=== PATIENT | female | born 1945 | race Caucasian/White ===

== ENCOUNTER → 2018-02-12 08:15 | Outpatient (CLI) | payer MEDICARE, OTHER, SELFPAY ==
--- NOTE | 2018-02-12 | DI.MRI.S_ITS ---
PROCEDURE: MR CERVICAL SPINE WO CON INDICATIONS: Polyneuropathy, unspecified TECHNIQUE: Noncontrast sagittal T1 spin echo and T2 fast spin echo, sagittal STIR, foraminal oblique sagittal T2 fast spin echo, and axial gradient echo or T2 fast spin echo through the cervical spine. COMPARISON: [facility] [place], , SPINE CERVICAL 2 OR 3VW, 07/06/2014, 16:34. [facility], , C-SPINE WITHOUT CONTRAST, 11/15/2016, 8:40. FINDINGS: Image quality: Excellent. Alignment and Curvature: There is normal bony alignment. Bone Marrow: Reactive endplate changes noted adjacent to the C4-C5, C5-C6 and C6 on C7 discs. Spinal Cord: Visualized spinal cord has normal size and signal. No cerebellar tonsillar herniation. Paraspinous Soft Tissues: No paravertebral masses. Prevertebral soft tissues are normal in thickness. C2-C3: Loss of disc signal. Mild bilateral facet hypertrophy. No central stenosis. No neural foraminal narrowing. No neural impingement. C3-C4: Loss of disc signal. Moderate right and mild left facet hypertrophy. No central stenosis. Mild bilateral neural foraminal narrowing. No neural impingement. C4-C5: Loss of disc signal and height. Moderate, diffuse disc bulge. Moderate right and mild left facet hypertrophy. Moderate bilateral uncovertebral joint hypertrophy. Severe narrowing of the central canal with flattening deformity cervical spinal cord. Severe bilateral neural foraminal narrowing with flattening deformity of the exiting C5 nerve roots. C5-C6: Loss of disc signal and height. Moderate, diffuse disc bulge. Moderate right and mild left facet hypertrophy. Moderate bilateral uncovertebral joint hypertrophy. Severe narrowing of the central canal with marked flattening deformity of the cervical spinal cord. Severe bilateral neural foraminal narrowing with flattening deformity of the exiting C6 nerve roots. C6-C7: Loss of disc signal and height. Moderate, diffuse disc bulge. Mild bilateral facet hypertrophy. Moderate bilateral uncovertebral joint hypertrophy. Severe narrowing of the central canal with flattening deformity cervical spinal cord. Severe bilateral neural foraminal narrowing with flattening deformity the exiting C7 nerve roots. C7-T1: Loss of disc signal. No central stenosis. No neural foraminal narrowing. No neural impingement. IMPRESSION: 1. Multilevel degenerative disc disease. 2. Multilevel facet arthropathy. 3. Severe C4-C5, C5-C6 and C6-C7 central canal narrowing. 4. Severe bilateral C4-C5, C5-C6 and C6-C7 neural foraminal narrowing. Mild bilateral C3-C4 neural foraminal narrowing. Dictated by: Chloe Sparks MD, PhD on 02/12/2018 at 15:20 Approved by: Chloe Sparks MD, PhD on 02/12/2018 at 16:01
--- NOTE | 2018-02-12 | DI.MRI.S_ITS ---
PROCEDURE: MR LUMBAR SPINE WO CON INDICATIONS: Polyneuropathy, unspecified TECHNIQUE: Noncontrast sagittal T1 spin echo and T2 fast echo, sagittal STIR, axial T1 and T2 fast spin echo through the lumbar spine. In cases with scoliosis, additional coronal T2 fast spin echo may be performed. COMPARISON: [facility], , L-SPINE WITHOUT CONTRAST, 07/12/2014, 14:51. [facility] [place], CR, SPINE LUMB 2 OR 3VW, 07/06/2014, 16:40. FINDINGS: Image quality: Excellent. Alignment and Curvature: 5 lumbar type vertebral bodies are present by plain film. There is mild, grade 1 retrolisthesis of L5 on S1, as before. Bone Marrow: Marrow is of normal overall signal. No acute vertebral body compression fractures. Mild reactive signal within the endplates adjacent to the of the L4-L5 and L5-S1 intervertebral discs. Spinal Cord: Conus medullaris terminates at the lower L2 level. Visualized cord demonstrates normal signal and size. Paraspinous Soft Tissues: No paravertebral masses. There is a complex septated high T2 intensity focus within the vicinity of the pancreatic head measuring roughly 40 mm diameter. Additionally, there is a 6 mm diameter low T2 intensity focus within the distal common bile duct, suggestive of choledocholithiasis. This area was not seen on the prior lumbar spine MRI examination. L1-L2: Mild facet hypertrophy and ligament flavum hypertrophy. No significant canal, nor foraminal stenosis. No change. L2-L3: Mild facet and ligamentum flavum hypertrophy. No significant canal, nor foraminal stenosis. No change. L3-L4: Mild disc desiccation and minimal diffuse disc bulge. Mild facet and ligamentum flavum hypertrophy. Mild canal stenosis. No foraminal stenosis. No change. L4-L5: Minimal disc desiccation. Moderate facet and ligamentum flavum hypertrophy. Mild canal stenosis. No foraminal stenosis. No change. L5-S1: Moderate disc height loss and desiccation. Mild diffuse disc bulge/osteophyte, with superimposed broad-based right far lateral protrusion. Left girdle and right facet hypertrophy. There is increased, moderate canal stenosis. There is increased, severe subarticular left foraminal stenosis. No change in mild right foraminal stenosis. There is increased flattening deformity of the left L5 nerve root within the neural foramen. IMPRESSION: 1. Findings suggestive of a choledocholith. Additionally, there is an indeterminate high T2 intensity lesion within or near the pancreas. Further assessment with pancreatic protocol CT with and without intravenous contrast is recommended for further assessment. 2.Multilevel degenerative disc and facet disease, as well as ligamentum flavum hypertrophy and epidural lipomatosis. 3. Multilevel canal stenoses, worst at L5-S1, where there is increased, moderate canal stenosis. 4. Multilevel foraminal stenoses, worst at L5-S1 on the left, where there is increased, severe subarticular left-sided foraminal stenosis, with associated flattening deformity of the left L5 nerve root within the neural foramen. Recommend correlation with clinical symptoms to ascertain relevance of this finding. 5. Findings discussed with Dr. Addison on 02.12.18 at 1015 hrs. Dictated by: Saniya Zapata M.D. on 02/12/2018 at 10:05 Approved by: Saniya Zapata M.D. on 02/12/2018 at 10:20
--- NOTE | 2018-02-12 | DI.MRI.S_ITS ---
PROCEDURE: MR THORACIC SPINE WO CON INDICATIONS: Polyneuropathy, unspecified TECHNIQUE: Noncontrast sagittal T1 spine echo and T2 fast spin echo, sagittal STIR, axial T1 and T2 fast spin echo through the thoracic spine. COMPARISON: None. FINDINGS: Image quality: Excellent. Alignment and Curvature: There is normal bony alignment. Bone Marrow: Marrow is of normal overall signal. No acute vertebral body compression fractures. Spinal Cord: Visualized spinal cord is normal in size and signal. Paraspinous Soft Tissues: No paravertebral masses. Miscellaneous: Mild multilevel degenerative disc changes are noted. No central stenosis. No neural foraminal narrowing. No neural impingement. IMPRESSION: 1. Mild multilevel degenerative disc disease. 2. No central stenosis. 3. No neural foraminal narrowing. 4. No neural impingement. 5. No abnormal spinal cord signal. Dictated by: Chloe Sparks MD, PhD on 02/12/2018 at 16:19 Approved by: Chloe Sparks MD, PhD on 02/12/2018 at 16:24
== END ==
PROVIDERS: Family Provider Physician Assistant Medical; PCP Physician Assistant Medical; Visit Provider Student in an Organized Health Care Education/Training Program
DX: G62.9 Polyneuropathy, unspecified (principal); K86.9 Disease of pancreas, unspecified; M51.37 Other intervertebral disc degeneration, lumbosacral region; M51.34 Other intervertebral disc degeneration, thoracic region; M48.061 Spinal stenosis, lumbar region without neurogenic claudication; M48.07 Spinal stenosis, lumbosacral region; M50.321 Other cervical disc degeneration at C4-C5 level; M47.812 Spondylosis without myelopathy or radiculopathy, cervical region; M48.02 Spinal stenosis, cervical region
CPT/HCPCS: 72141; 72146; 72148

== ENCOUNTER → 2018-02-13 11:40 | Outpatient (CLI) | payer MEDICARE, OTHER, SELFPAY ==
[2018-02-13 12:18] LABS: Alanine Aminotransferase 28 IU/L (9-52); Albumin 4.4 g/dL (3.5-5.0); Albumin Globulin Ratio 1.3 (1.0-2.8); Alkaline Phosphatase 78 U/L (38-126); Aspartate Aminotransferase 28 IU/L (14-36); BUN Creatinine Ratio 13.8 (6-22); Bilirubin Total 0.3 mg/dL (0.2-1.3); Blood Urea Nitrogen 11 mg/dL (7-17); Calcium 9.7 mg/dL (8.4-10.2); Carbon Dioxide 30 mmol/L (22-32); Chloride 101 mmol/L (98-107); Estimated Glomerular Filt Rate > 60.0 mL/min (>60); Globulin 3.3 g/dL (1.7-4.1); Glucose 91 mg/dL (80-110); HEMOLYSIS < 15 (0-50); Potassium 4.2 mmol/L (3.4-5.1); Sodium 142 mmol/L (137-145); Total Protein 7.7 g/dL (6.3-8.2)
--- NOTE | 2018-02-13 12:18 | DI.CT.S_ITS ---
PROCEDURE: CT ABDOMEN WO/W CON INDICATIONS: Suspected pancreatic lesion on prior lumbar spine MRI. TECHNIQUE: Noncontrast 3 mm thick sections acquired through the pancreas. After the administration of intravenous contrast, 3 mm thick pancreatic-phase images acquired from the diaphragm to the iliac crests. 3 mm thick coronal and sagittal reformats were performed. For radiation dose reduction, the following was used: automated exposure control, adjustment of mA and/or kV according to patient size. COMPARISON: [facility], MR, MR LUMBAR SPINE WO CON, 02/12/2018, 8:48. FINDINGS: Image quality: Excellent. Lung bases: There is mild dependent atelectasis. Heart size is normal. There is a small hiatal hernia. Postsurgical changes are demonstrated in the region of the diaphragmatic hiatus. Pancreas: There are a few small ovoid cystic lesions demonstrated in the pancreas. Include a small lesion medially in the uncinate process measuring up to 1.5 x 0.7 cm adjacent to the pancreatic duct with suggestion of focal communication. In the head of the pancreas, there is a small cystic lesion posteriorly measuring up to 1.0 x 0.7 cm also noted adjacent to the pancreatic duct. Within the junction of the body and tail of the pancreas, there are 2 small cystic lesions measuring up to 0.5 and 0.4 cm also demonstrated adjacent to the pancreatic duct. The lesions most likely represent small side branch IPMN's. No pancreatic duct dilatation. No definite solid pancreatic mass is identified. There is a large medial duodenal diverticulum also demonstrated along the body and uncinate process of the pancreas. Other solid organs: There are a few hepatic cysts as well as additional small low-density ovoid foci in the liver which are too small to characterize but likely represent cysts. The gallbladder is surgically absent. There is mild biliary ductal dilatation, with the common bile duct measuring up to approximately 0.9 cm. No definite obstructing common duct stone visualized. The findings may be secondary to prior cholecystectomy. Spleen is normal in size and enhancement. No adrenal nodules. Kidneys demonstrate no hydronephrosis. No Peritoneum and bowel: Visualized bowel loops demonstrate normal wall thickness and caliber. There is chronic diverticulosis noted. No free fluid or air. Nodes and vessels: No retroperitoneal or mesenteric adenopathy by size criteria. Aorta and inferior vena cava are normal in size. Bones: No suspicious bony lesions. No vertebral body compression fractures. Miscellaneous: No ventral hernias. IMPRESSION: 1. Multiple small cystic lesions demonstrated in the pancreas as described likely representing small side branch IPMN's. No discrete solid mass lesions or pancreatic duct dilatation identified. Followup may be performed in 12 months to demonstrate stability if clinically indicated. 2. Large duodenal diverticulum adjacent to the hepatic head likely corresponding to findings on prior lumbar spine MRI. 3. Multiple hepatic cysts as well as smaller low density foci likely representing cysts. Dictated by: Luis Miguel Montes M.D. on 02/13/2018 at 15:29 Approved by: Luis Miguel oMntes M.D. on 02/13/2018 at 15:46
== END ==
PROVIDERS: Family Provider Physician Assistant Medical; PCP Physician Assistant Medical; Visit Provider Student in an Organized Health Care Education/Training Program
DX: K86.2 Cyst of pancreas (principal); K76.89 Other specified diseases of liver; K57.10 Diverticulosis of small intestine without perforation or abscess without bleeding; R93.89 Abnormal findings on diagnostic imaging of other specified body structures
CPT/HCPCS: 36415; 74170; 80053; Q9967

== ENCOUNTER → 2018-03-09 14:05 | Outpatient (CLI) | payer MEDICARE, OTHER, SELFPAY ==
--- NOTE | 2018-03-09 | DI.MG.S_ITS ---
BILATERAL DIGITAL SCREENING MAMMOGRAM 3D/2D WITH CAD: 03/09/2018 CLINICAL: Routine screening. Family history of breast cancer. Comparison is made to exams dated: 02/22/2016 mammogram, 01/03/2015 mammogram, and 01/27/2013 mammogram - [facility]. There are scattered fibroglandular elements in both breasts. Current study was also evaluated with a Computer Aided Detection (CAD) system. No significant masses, calcifications, or other findings are seen in either breast. There has been no significant interval change. IMPRESSION: NEGATIVE There is no mammographic evidence of malignancy. A 1 year screening mammogram is recommended. This exam was interpreted at Station ID: [id number]. NOTE: For mammograms, a report in lay terms will be sent to the patient. Approximately 15% of breast malignancies will not be visualized mammographically. In the management of a palpable breast mass, a negative mammogram must not discourage biopsy of a clinically suspicious lesion. Electronically Signed By: Edward murillo/ovidio:03/09/2018 16:36:50 letter sent: Normal Exam ACR BI-RADS Category 1: Negative 3341F
== END ==
PROVIDERS: Family Provider Physician Assistant Medical; PCP Physician Assistant Medical; Visit Provider Physician Assistant Medical
DX: Z12.31 Encounter for screening mammogram for malignant neoplasm of breast (principal); Z80.3 Family history of malignant neoplasm of breast
CPT/HCPCS: 77063; 77067

== ENCOUNTER 2018-04-03 11:35 | Emergency (ER) | payer MEDICARE, OTHER, SELFPAY ==
[2018-04-03 11:40] VITALS: BP 129/64; PULSE 81; RESP 18; TEMP 36.9; O2SAT 97
--- NOTE | 2018-04-03 12:04 | ED.BACK ---
HPI - Back Pain/Injury <Ludmila Sequeira PA-C - Last Filed: 04/03/18 21:53> General Chief Complaint: Back Pain/Injury Stated Complaint: sciatica, lower back pain Time Seen by Provider: 04/03/18 12:03 Source: patient Mode of arrival: ambulatory Limitations: no limitations History of Present Illness HPI Narrative: This 73-year-old female comes to ED due to worsening of her chronic right-sided sciatica. She had an MRI here last month, and states that she has been referred for some type of surgical intervention but does not know what procedure is planned. She states that her pain is always bad and has been gradually worsening to the point that she states that she tried THC last month, with no relief. She states that her neuropathy makes her feet feel like they are on boards but that is typical for her. She states that pain always radiates down her right leg. Pain has been particularly bad in the last couple of days and keeps her from normal activity. It is worse with walking, also cannot get comfortable at night (she takes her usual medicines at night including clonazepam, amitriptyline, and gabapentin, and is still up within a few hours crying her states ). She states that she has taken Aleve a couple of times at home and that does help. She states that she avoids opioids secondary to feeling fuzzy and confused on them. She states that she was able to tolerate Dilaudid after her foot fracture in 2005 if taken with Zofran but also put her to sleep. She states she has tried muscle relaxants without relief. She denies any new weakness in her legs. She denies any numbness in her groin. She denies any changes in bowel or bladder habits. She denies any falls or new trauma. She states that she does not have specific plan or medications at home for when her pain flares up, but does feel like this is an exacerbation of her sciatica. She states it is pain that keeps her from activity, not weakness or other new problems. Past Medical History Hypothyroid [id number] diabetes Chronic lower back pain/sciatica (nl MRI 02/17) Csp DDD Peripheral neuropathy Reactive airways Past Surgical History Hiatal hernia repair Right foot repair Mat Fundiplication Related Data Home Medications Medication Instructions Recorded Confirmed cyclobenzaprine 5 mg PO TID #0 02/20/17 04/03/18 lisinopril 20 mg PO DAILY #0 02/20/17 04/03/18 metformin [Glucophage] 500 mg PO DAILY #0 02/20/17 04/03/18 Numerous Supplements 1 dose MISCELLANEOUS DIRECTED 04/03/18 04/03/18 clonazepam 1.5 mg PO BEDTIME 04/03/18 04/03/18 gabapentin 1,200 mg PO TID 04/03/18 04/03/18 rosuvastatin 5 mg PO DAILY 04/03/18 04/03/18 triamterene-hydrochlorothiazid 1 tab PO DAILY 04/03/18 04/03/18 Previous Rx's Medication Instructions Recorded ondansetron 4 mg PO Q8-12H PRN #7 tab 04/03/18 tramadol 50 mg PO Q4H PRN #14 tab 04/03/18 Allergies Allergy/AdvReac Type Severity Reaction Status Date / Time acetaminophen [From VICODIN] Allergy Unknown NAUSEA Unverified 06/11/17 12:16 hydrocodone [From VICODIN] Allergy Unknown NAUSEA Unverified 06/11/17 12:16 Review of Systems <Ludmila Sequeira PA-C - Last Filed: 04/03/18 21:53> Review of Systems ROS Unobtainable: All systems reviewed & are unremarkable except as noted in HPI and below Exam <Ludmila Sequeira PA-C - Last Filed: 04/03/18 21:53> Narrative Exam Narrative: GENERAL APPEARANCE: Patient sitting comfortably, in no distress. PULMONARY: Lungs clear to auscultation bilaterally CV: Regular rhythm regular without murmur, normal S1 and S2, no S3 or S4 MUSCULOSKELETAL: No point tenderness over the lumbar spine. Tender over the R. SI joint, no TTP elsewhere. Full AROM of trunk seated. Lower extremity strength 5/5 bilateral hip flexors, knee extensors, foot plantar flexion. Negative modified straight leg raise NEUROLOGIC: Bilateral patellar and Achilles DTRs 1+ DERM: No exanthem Initial Vital Signs Initial Vital Signs: Vital Signs Temperature 98.4 F 04/03/18 11:40 Pulse Rate 81 04/03/18 11:40 Respiratory Rate 18 04/03/18 11:40 Blood Pressure 129/64 04/03/18 11:40 Pulse Oximetry 97 04/03/18 11:40 <Ilsa Vinson MD - Last Filed: 04/05/18 03:52> Initial Vital Signs Initial Vital Signs: Vital Signs Temperature 98.4 F 04/03/18 11:40 Pulse Rate 81 04/03/18 11:40 Respiratory Rate 18 04/03/18 11:40 Blood Pressure 129/64 04/03/18 11:40 Pulse Oximetry 97 04/03/18 11:40 Course <Ludmila Sequeira PA-C - Last Filed: 04/03/18 21:53> Additional Information: Patient gets a little bit of relief with NSAIDs and also had not tried tramadol in the past, which she tolerated well without drowsiness. she was feeling improved at the time of discharge. She will continue this combination over the weekend and agreed to follow up with her PCP early next week to discuss pain management while her back pain referrals are being worked out. Orders Ordered: Discontinued Medications Ketorolac Tromethamine (Toradol) 60 mg IM NOW ONE Stop: 04/03/18 12:32 Last Admin: 04/03/18 12:48 Dose: 60 mg Ondansetron HCl (Zofran Odt) 4 mg PO NOW ONE Stop: 04/03/18 12:32 Last Admin: 04/03/18 12:49 Dose: 4 mg Tramadol HCl (Ultram) 50 mg PO NOW ONE Stop: 04/03/18 12:32 Last Admin: 04/03/18 13:20 Dose: 50 mg Vital Signs - 8 hr 04/03/18 14:12 Pulse Rate 79 Respiratory Rate 18 Blood Pressure [Left Arm] 108/63 Pulse Oximetry 97 <Ilsa Vinson MD - Last Filed: 04/05/18 03:52> Orders Ordered: Discontinued Medications Ketorolac Tromethamine (Toradol) 60 mg IM NOW ONE Stop: 04/03/18 12:32 Last Admin: 04/03/18 12:48 Dose: 60 mg Ondansetron HCl (Zofran Odt) 4 mg PO NOW ONE Stop: 04/03/18 12:32 Last Admin: 04/03/18 12:49 Dose: 4 mg Tramadol HCl (Ultram) 50 mg PO NOW ONE Stop: 04/03/18 12:32 Last Admin: 04/03/18 13:20 Dose: 50 mg Vital Signs - 8 hr 04/03/18 14:12 Pulse Rate 79 Respiratory Rate 18 Blood Pressure [Left Arm] 108/63 Pulse Oximetry 97 Discharge Plan Departure Patient Disposition: Home Clinical Impression: Sciatica of right side Discharge Date/Time: 04/03/18 14:32 Interventions: ED Discharge Assessment Last Done: 04/03/18 14:29 Instructions: DI for Back Pain With Sciatica Activity Restrictions/Additional Instructions: please return if you have acutely worsening symptoms, or new symptoms that we talked about such as numbness in your groin, inability to urinate or weakness in your extremities. Otherwise, please call your PCP this afternoon and let her know you were in the emergency room so that you can arrange for follow-up on Friday and refill of medicines if working for you. since you tolerated the tramadol well today, please continue that as needed for your pain. Please take with Tylenol as they work well together and you already have that at home. Try 1 tab at a time with Tylenol at 1st, but you can increase to 2 tabs if needed. You had an anti-inflammatory injection today. For the next couple of days, please take 2 Aleve twice daily. That is the equivalent of a prescription dose and sounds like it was helping you previously. Then you can reduce to 1 tab twice daily until you follow up with your PCP. Gentle walking is okay as we discussed, but limit other activity. Prescriptions: New tramadol 50 mg tablet 50 mg PO Q4H PRN (Reason: acute sciatica pain) Qty: 14 RF: 0 ondansetron 4 mg tablet,disintegrating 4 mg PO Q8-12H PRN (Reason: prn nausea) Qty: 7 RF: 0 No Action metformin [Glucophage] 500 MG tablet 500 mg PO DAILY Qty: 0 RF: 0 lisinopril 20 MG tablet 20 mg PO DAILY Qty: 0 RF: 0 cyclobenzaprine 5 MG tablet 5 mg PO TID Qty: 0 RF: 0 gabapentin 600 mg tablet 1,200 mg PO TID RF: 0 triamterene-hydrochlorothiazid 37.5-25 mg tablet 1 tab PO DAILY RF: 0 rosuvastatin 5 mg tablet 5 mg PO DAILY RF: 0 clonazepam 0.5 mg tablet 1.5 mg PO BEDTIME RF: 0 Numerous Supplements 1 dose miscellaneous DIRECTED RF: 0 Referrals: Shona Tran PA-C [Primary Care Provider] -
[2018-04-03 12:30] VITALS: BP 125/66; PULSE 74; RESP 21; O2SAT 98
[2018-04-03] MEDS: KETOROLAC 60 MG/2 ML VIAL IM (12:48)
[2018-04-03] MEDS: ONDANSETRON 4 MG ODT PO (12:49)
[2018-04-03] MEDS: TRAMADOL 50 MG TABLET PO (13:20)
[2018-04-03 14:12] VITALS: BP 108/63; PULSE 79; RESP 18; O2SAT 97
== END 2018-04-03 14:32 | disposition home or self-care (01) ==
PROVIDERS: Emergency Provider Internal Medicine; Family Provider Physician Assistant Medical; PCP Physician Assistant Medical
DX: M54.31 Sciatica, right side (principal)
CPT/HCPCS: 96372; 99282; 99283; J1885

== ENCOUNTER → 2019-01-02 10:26 | Outpatient (CLI) | payer MEDICARE, OTHER, SELFPAY ==
--- NOTE | 2019-01-02 | DI.MRI.S_ITS ---
PROCEDURE: MR LUMBAR SPINE WO CON INDICATIONS: Radiculopathy, lumbar region TECHNIQUE: Noncontrast sagittal T1 spin echo and T2 fast echo, sagittal STIR, axial T1 and T2 fast spin echo through the lumbar spine. In cases with scoliosis, additional coronal T2 fast spin echo may be performed. COMPARISON: [facility], MR, MR LUMBAR SPINE WO CON, 02/12/2018, 8:48. FINDINGS: Image quality: Excellent. Alignment and Curvature: Mild grade 1 retrolisthesis of L5 on S1, measuring approximately 6 mm, unchanged. Otherwise normal alignment. Bone Marrow: Marrow is of normal overall signal. No acute vertebral body compression fractures. Spinal Cord: Conus medullaris terminates at the L2 level. Visualized cord demonstrates normal signal and size. Paraspinous Soft Tissues: No paravertebral masses. T12-L1: No canal stenosis or foraminal stenosis. L1-L2: Unchanged. No canal stenosis. Mild bilateral facet hypertrophy. No foraminal stenosis. L2-L3: A very minimal left posterior disc protrusion has developed without canal stenosis. Mild facet and ligament hypertrophy. No foraminal stenosis. L3-L4: Unchanged. Minimal disc bulge. Facet and ligament hypertrophy. Mild canal stenosis. Far left lateral annulus tear with mild foraminal disc bulge without foraminal stenosis. L4-L5: Disc bulge and facet and ligament hypertrophy. Interval increase in canal stenosis, now moderate. No significant foraminal stenosis. L5-S1: Mild grade 1 retrolisthesis of L5 on S1 is stable associated disc bulge. Prominent bilateral facet hypertrophy. Moderate canal stenosis is stable. Mild right foraminal stenosis is stable. Severe left foraminal stenosis with flattening of the left L5 nerve root in the foramen is stable. IMPRESSION: 1. Diffuse degenerative change. 2. A very minimal left posterior disc protrusion has developed at L2-L3, of uncertain significance. 3. Mild canal stenosis is stable at L3-L4, as is a far left lateral annulus tear. 4. Interval increase in canal stenosis at L4-L5, now moderate. 5. Moderate canal stenosis at L5-S1 is stable. Severe left foraminal stenosis at L5-S1 is stable. Dictated by: Andrei Mann M.D. on 01/04/2019 at 15:23 Approved by: Andrei Mann M.D. on 01/04/2019 at 15:55
== END ==
PROVIDERS: Family Provider Physician Assistant Medical; PCP Physician Assistant Medical; Visit Provider Orthopaedic Surgery
DX: M47.26 Other spondylosis with radiculopathy, lumbar region (principal); M47.27 Other spondylosis with radiculopathy, lumbosacral region; M48.061 Spinal stenosis, lumbar region without neurogenic claudication; M48.07 Spinal stenosis, lumbosacral region
CPT/HCPCS: 72148

== ENCOUNTER → 2019-04-05 09:44 | Outpatient (CLI) | payer MEDICARE, OTHER, SELFPAY ==
[2019-04-05 10:14] LABS: RBC Urine None Seen (0-5/HPF)
[2019-04-05 10:34] LABS: Add Manual Diff / Slide Review NO; Basophils Absolute Auto 100 /uL (0-100); Basophils Percent Auto 0.6 % (0-2); Eosinophils Absolute Auto 400 /uL (0-450); Eosinophils Percent Auto 3.6 % (2-4); Hemoglobin 13.6 g/dL (12.0-16.0); Lymphocytes Absolute Auto 2400 /uL (1100-4500); Lymphocytes Percent Auto 23.4 % (25-40); Mean Corpuscular HGB Conc 33.1 % (30-36); Mean Corpuscular Hemoglobin 29.3 PG (26-34); Mean Corpuscular Volume 88.5 fL (80-100); Monocytes Absolute Auto 500 /uL (0-900); Monocytes Percent Auto 4.5 % (3-14); Neutrophils Absolute Auto 7000 /uL (1500-7000); Neutrophils Percent Auto 67.9 % (50-75); Platelet Count 359 X10^3/uL (150-400); Red Blood Cell Count 4.63 X10^6/uL (4.0-5.2); Red Cell Distribution Width 14.1 % (11.6-14.8); White Blood Cell Count 10.3 X10^3/uL (4.5-11.0)
[2019-04-05 10:36] LABS: Hemoglobin A1C% w Est Avg Glu 5.6 % (4.0-6.0)
[2019-04-05 10:39] LABS: Blood Urea Nitrogen 12 mg/dL (7-17); Calcium 9.9 mg/dL (8.4-10.2); Carbon Dioxide 28 mmol/L (22-32); Chloride 103 mmol/L (98-107); Estimated Glomerular Filt Rate > 60.0 mL/min (>60); Glucose 91 mg/dL (80-110); HEMOLYSIS < 15 (0-50); Potassium 4.2 mmol/L (3.4-5.1); Sodium 140 mmol/L (137-145)
[2019-04-05 10:41] LABS: Appearance Urine UA SL CLOUDY; Bilirubin Urine UA NEGATIVE (NEGATIVE); Color Urine UA YELLOW; Glucose Urine UA NEGATIVE (Negative); Ketones Urine UA NEGATIVE (NEGATIVE); Leukocyte Esterase Urine UA 1+ (NEGATIVE); Nitrite Urine UA POSITIVE (Negative); Occult Blood Urine UA NEGATIVE (Negative); Protein Urine UA NEGATIVE (Negative); Specific Gravity Urine UA 1.015 (1.000-1.035); Urobilinogen Urine UA 0.2 E.U./dL (0.2)
[2019-04-05 10:49] LABS: Bacteria Urine Many (>30); Culture Indicated Urine Specimen Cultured; Squamous Epithelial Cell Urine 1-5 /HPF (0-5/HPF); WBC Urine 1-5/HPF (0-5/HPF)
== END ==
PROVIDERS: Family Provider Physician Assistant Medical; PCP Physician Assistant Medical; Referring Provider Orthopaedic Surgery; Visit Provider Orthopaedic Surgery
DX: Z01.818 Encounter for other preprocedural examination (principal); Z01.812 Encounter for preprocedural laboratory examination; N39.9 Disorder of urinary system, unspecified; Z13.1 Encounter for screening for diabetes mellitus; R73.9 Hyperglycemia, unspecified; N39.0 Urinary tract infection, site not specified
CPT/HCPCS: 80048; 81001; 83036; 85025; 87077; 87086; 87186; 93005